=== PATIENT | male | born 1955 | race Caucasian/White ===

== ENCOUNTER → 2017-04-25 | Day surgery (SDC) | payer OTHER ==
[~2017-04-25] VITALS: Ht 180.3 cm; Wt 107.0 kg
[~2017-04-25] MED LIST: CITALOPRAM HYDR20 MG PO; HYDROCHLOROTHIA25 M1 PO; TENORMIN50 MG PO; ZOCOR40 MG PO
[2017-04-25 08:20] VITALS: BP 145/87
--- NOTE | 2017-04-25 10:55 | NUR ---
DR BRISENO HAS STATED HE WILL PROVIDE A RIDE HOME FOR THIS CLIENT.
[2017-04-25 11:10] VITALS: BP 124/76
[2017-04-25 11:20] VITALS: BP 133/81
[2017-04-25 11:38] VITALS: BP 140/83
== END | disposition home or self-care (01) ==
LOC: SDC 08:39
DX: K57.30 Diverticulosis of large intestine without perforation or abscess without bleeding (principal); Z85.038 Personal history of other malignant neoplasm of large intestine; C78.7 Secondary malignant neoplasm of liver and intrahepatic bile duct; I10 Essential (primary) hypertension; E78.00 Pure hypercholesterolemia, unspecified; Z98.890 Other specified postprocedural states; G47.30 Sleep apnea, unspecified; Z79.899 Other long term (current) drug therapy; F32.9 Major depressive disorder, single episode, unspecified; Z90.49 Acquired absence of other specified parts of digestive tract; F17.210 Nicotine dependence, cigarettes, uncomplicated; E66.9 Obesity, unspecified; Z68.32 Body mass index [BMI] 32.0-32.9, adult

== ENCOUNTER → 2017-06-13 | Outpatient (CLI) | payer OTHER | END | disposition home or self-care (01) | LOC: CT 10:56 | DX: C78.7 Secondary malignant neoplasm of liver and intrahepatic bile duct (principal); C18.7 Malignant neoplasm of sigmoid colon; I25.10 Atherosclerotic heart disease of native coronary artery without angina pectoris; K57.30 Diverticulosis of large intestine without perforation or abscess without bleeding; K40.90 Unilateral inguinal hernia, without obstruction or gangrene, not specified as recurrent; Z93.6 Other artificial openings of urinary tract status ==

== ENCOUNTER → 2017-10-16 | Outpatient (CLI) | payer OTHER | END | disposition home or self-care (01) | LOC: CT 07:41 | DX: K46.9 Unspecified abdominal hernia without obstruction or gangrene (principal); C78.7 Secondary malignant neoplasm of liver and intrahepatic bile duct; N13.39 Other hydronephrosis; R91.1 Solitary pulmonary nodule; Z98.890 Other specified postprocedural states ==

== ENCOUNTER 2017-12-19 13:05 | Emergency (ER) | payer OTHER ==
[~2017-12-19] VITALS: Ht 180 cm; Wt 108.9 kg
[2017-12-19 13:25] LABS: BASO # 0.1 10*3/uL (0.0-0.1); BASO % 1.3 % (0.0-1.0); EOS # 0.2 10*3/uL (0.0-0.4); EOS % 5.2 % (1.0-4.0); HEMATOCRIT 37.3 % (42.0-52.0); HEMOGLOBIN 11.9 g/dl (14.0-18.0); LYMPH # 1.5 10*3/uL (1.3-4.4); MEAN CELL VOLUME 88.2 fl (80.0-94.0); MEAN CORPUSCULAR HGB 28.1 pg (27.0-31.0); MEAN CORPUSCULAR HGB CONC 31.9 g/dl (33.0-37.0); MEAN PLATELET VOLUME 9.3 fl (9.6-12.3); MONO # 0.4 10*3/uL (0.1-1.0); MONO % 9.1 % (3.0-9.0); NEUT # 2.4 10*3/uL (2.3-7.9); NEUT % 52.2 % (47.0-73.0); PLATELET COUNT AUTOMATED 245 10*3/uL (130-400); RED BLOOD COUNT 4.23 10*6/uL (4.50-5.90); RED CELL DISTRI WIDTH 15.4 % (0-14.5); WHITE BLOOD COUNT 4.6 10*3/uL (4.8-10.8)
[2017-12-19 13:33] LABS: ACT PARTIAL THROMBO TIME 22.8 SECONDS (20.8-31.5); INTERNATIONAL NORM RATIO 0.9 (2.0-3.5)
[2017-12-19 13:37] LABS: BUN 14 mg/dl (7-24); CHLORIDE 101 mmol/L (98-107); CREATININE 1.13 mg/dL (0.70-1.30); POTASSIUM 3.6 mmol/L (3.5-5.1); SODIUM 140 mmol/L (136-145)
== END 2017-12-19 14:55 | disposition home or self-care (01) ==
LOC: ED 13:05
PROVIDERS: Emergency Medicine
DX: N99.522 Malfunction of incontinent external stoma of urinary tract (principal); T83.038A Leakage of other urinary catheter, initial encounter; Z79.899 Other long term (current) drug therapy

== ENCOUNTER → 2017-12-20 | Day surgery (SDC) | payer OTHER | END | disposition home or self-care (01) | LOC: CT 08:58 → EDSTATUS 16:00 → CT 16:00 | DX: T83.012A Breakdown (mechanical) of nephrostomy catheter, initial encounter (principal); C20 Malignant neoplasm of rectum; C78.7 Secondary malignant neoplasm of liver and intrahepatic bile duct; C18.7 Malignant neoplasm of sigmoid colon ==